=== PATIENT | male | born 1965 | race Caucasian/White ===

== ENCOUNTER 2018-01-01 18:40 | Observation (INO) | payer BC ==
[2018-01-01] MEDS ORDERED: HYDROcodone/Acetaminophen 10/325 mg Tablet PO PRN (19:06)
[2018-01-01] MEDS ORDERED: Morphine 4 MG/ML VIAL SLOW IVP PRN (19:07)
[2018-01-01] MEDS ORDERED: Ketorolac Tromethamine 30 MG/ML VIAL IVP PRN (19:08)
[2018-01-01] MEDS ORDERED: Ondansetron HCl/PF 4 MG/2 ML Vial IVP PRN (19:09)
[2018-01-01] MEDS ORDERED: Heparin 10,000 UNITS/ 10 ML VIAL ONE (19:57)
[2018-01-01 19:59] LABS: #Eosinphils 0.5 thou/uL (0.0-0.7); #Lymphocytes 2.6 thou/uL (1.20-3.40); #Monocytes 0.9 thou/uL (0.11-0.59); #Neutrophils 5.5 thou/uL (1.40-6.50); %Basophils 0.4 % (0.0-1.0); %Eosinophils 4.8 % (0.0-10.0); %Lymphocytes 27.7 % (21.0-51.0); %Monocytes 8.9 % (0.0-10.0); %Neutrophils 58.2 % (42.0-75.0); Hemoglobin 17.9 g/dL (14.0-18.0); Mean Corpuscular HGB CONC 34.6 g/dL (32.0-36.0); Mean Corpuscular Hemoglobin 32.7 pg (27.0-31.0); Mean Corpuscular Volume 94.6 fL (78.0-98.0); Mean Platelet Volume 8.2 fL (7.4-10.4); Platelet Count 203 thou/uL (130-400); RBC Distribution Width 12.9 % (11.5-14.5); Red Blood Cell (RBC) Count 5.47 mill/uL (4.70-6.10); White Blood Cell (WBC) Count 9.5 thou/uL (4.8-10.8)
[2018-01-01 20:14] LABS: Anion Gap 12 mmol/L (10-20); BUN (Urea Nitrogen) 16 mg/dL (8.9-20.6); CRP (Inflammatory) 11.54 mg/dL (= or < 0.5); Calc. Creatinine Clearance 0 mL/min (70-130); Calcium 9.2 mg/dL (7.8-10.44); Carbon Dioxide 26 mmol/L (22-29); Chloride 101 mmol/L (98-107); Estimated GFR-MDRD Greater than 90; Glucose 83 mg/dL (70-105); Potassium 3.9 mmol/L (3.5-5.1); Sodium 135 mmol/L (136-145)
[2018-01-01] MEDS: HYDROcodone/Acetaminophen 10/325 mg Tablet PO PRN (20:17)
[2018-01-01] MEDS: D5 1/2 NS w/20 mEq KCL 1,000 ML IV SCH (21:14)
[2018-01-01 23:46] VITALS: BMI 39.1
[2018-01-02 06:51] LABS: BF Color Yellow; Body Fluid Source SYNOVIAL FLUID; Clarity Cloudy/Turbid (Clear); RBC Background Count 0.009; Tube # EDTA
[2018-01-02 06:52] LABS: WBC/NonHematic-Auto 66300 /cumm
[2018-01-02 06:53] LABS: RBC Count-Automated 90000 /cumm
[2018-01-02 06:55] LABS: BF Segmented Neutrophils 93 %; Cell Count Non Hematic 5 %; Lymphocytes 2 %
[2018-01-02] MEDS: HYDROcodone/Acetaminophen 10/325 mg Tablet PO PRN ×3 (08:14→23:55)
[2018-01-02] MEDS: D5 1/2 NS w/20 mEq KCL 1,000 ML IV SCH ×3 (08:16→22:47)
--- NOTE | 2018-01-02 10:59 | PRG ---
DATE OF SERVICE: 01/02/2018 SUBJECTIVE: Overnight, Mr. Villa did fine. His pain has been well controlled with just one dose of oral narcotics. He has been afebrile. LABORATORY DATA: At this time, his new CBC showed a normal white count, platelets within normal. Hi s C-reactive protein was pretty high at over 11. His sed rate was within normal limits. The fluid t hat I removed from his knee showed a white count of 66,000, red count of 90,000 and his segs are 93%. Crystals were negative and his glucose was 7 in the fluid. ASSESSMENT AND PLAN: Based on everything, at this point, I think that the patient is not having a go ut or pseudogout attack, but is more than likely having a low grade infection from a bacteria that is not very virulent. Therefore, my recommendation is to go to the operating room for a formal incisio n and drainage arthroscopically. I have spoken with he and his about this and I do believe it i s in his best interest to over treat this rather than under treat this until we are sure that the cul tures are negative. They agree with this plan. We will plan on going to the operating room at this time for formal incision and drainage.
[2018-01-02] MEDS ORDERED: Dexamethasone 20 MG/5 ML VIAL ONE ×2 (11:11→12:44)
[2018-01-02] MEDS ORDERED: PROPOFOL 200 MG/20 ML VIAL ONE (11:11)
[2018-01-02] MEDS ORDERED: Ondansetron HCl/PF 4 MG/2 ML Vial ONE ×2 (11:11→12:44)
[2018-01-02] MEDS ORDERED: Ketorolac Tromethamine 30 MG/ML VIAL ONE ×2 (11:11→12:44)
[2018-01-02] MEDS ORDERED: Midazolam HCl 2 mg/2 ml Vial ONE ×2 (11:16→12:08)
[2018-01-02] MEDS ORDERED: Fentanyl 100 MCG/2 ML VIAL ONE ×3 (12:08→13:30)
[2018-01-02] MEDS ORDERED: Ondansetron HCl/PF 4 MG/2 ML Vial IVP PRN (14:48)
[2018-01-02] MEDS ORDERED: Promethazine HCl 25 MG/ML VIAL IM PRN (14:48)
[2018-01-02] MEDS ORDERED: Promethazine HCl 25 MG/ML VIAL SLOW IVP PRN (14:48)
--- NOTE | 2018-01-03 00:44 | CON ---
HISTORY OF PRESENT ILLNESS: A 52-year-old patient, history of hypertension, hyperlipidemia, and osteoarthritis of knees who has had 5 injections of hyaluronic acid in his left knee few months ago by Dr. Mata and did well until more recently when he developed worsening pain in the left knee while he was in a game in [place]. He was evaluated at a local emergency room and they attempted arthrocentesis, which was not successful. He came to town and the pain persisted and was evaluated by Dr. Springer and had at this time a successful arthrocentesis with 100 mL of cloudy fluid, light yellow. The fluid had 66,000 WBCs with predominance of neutrophils. The patient was admitted and had a washout, the joint appeared fairly well without obvious signs of an infective arthritis during the arthroscopy. He is currently having moderate pain at the site. No headaches, visual symptoms, sore throat, odynophagia, dysphagia, no back pain, no dyspnea or chest pain, no abdominal pain or diarrhea, voiding without difficulty. No other joint symptoms except for the right knee. There also has chronic osteoarthritis. PAST MEDICAL HISTORY: History of hypertension, hyperlipidemia, osteoarthritis in the knees. ALLERGIES: None. MEDICATIONS: Acetaminophen, Toradol, morphine, and vancomycin. PHYSICAL EXAMINATION: VITAL SIGNS: T-max 98.4, blood pressure 120/70, pulse 77, respirations 18, O2 sat 95%. There is no lymphadenopathy. HEENT: Ocular movements are conjugate. Conjunctivae normal. Nasal passages patent. Oral cavity normal. NECK: Supple. LUNGS: Symmetric. Clear breath sounds. ABDOMEN: Soft, not distended or tender. The left knee with dressing and still has a drain in place. EXTREMITIES: Pulses 2+ in dorsalis pedis. NEUROLOGIC: Nonfocal including cognitive function. LABORATORY: Synovial fluid has been discussed. Crystal analysis in the synovial fluid was negative. CBC was fairly unremarkable. The chemistry with a CRP of 11.54, sodium 135, creatinine 0.87, calcium 9.2. ASSESSMENT: 1. Hypertension. 2. Hyperlipidemia with osteoarthritis, status post hyaluronic acid injections in the past, now with synovitis of the left knee with a predominance of mature neutrophils. DISCUSSION: Differential diagnosis includes infective arthritis versus noninfectious inflammatory process. Among non-infective inflammatory processes , a chronic granulomatous synovitis following delayed reaction to hyaluronic acid injections is a possibility. An inflammatory arthropathy such as rheumatoid arthritis or systemic lupus, not likely since there are no other systemic signs or all the joints involved, seronegative spondyloarthropathies or reactive arthritis, also less likely. Crystal induced arthritis has been pretty much ruled out. I am not going to change the antimicrobial therapy at this point in time and if cultures remain negative, I would tend to discontinue antimicrobials. MTDD
--- NOTE | 2018-01-03 01:09 | OP ---
DATE OF PROCEDURE: 01/02/2018 PREOPERATIVE DIAGNOSIS: Left knee infection. POSTOPERATIVE DIAGNOSIS: Left knee infection. PROCEDURES PERFORMED: 1. Arthroscopic irrigation and debridement of left knee. 2. Removal of large bony loose body approximately 2 cm in diameter. SURGEON: Alonso Springer M.D. CONTROL VALVE TECHNICIAN: None. BLOOD LOSS: Minimal. COMPLICATIONS: None. ANESTHESIA: He had general anesthetic. DISPOSITION: He did go to the recovery room in stable condition. INDICATIONS: This is a 52-year-old male who was placed in observation yesterday evening after I went through a bunch of unhealthy appearing fluid from his left knee. At this time, based on all laboratory workup, history and physical exam, I believe it is pertinent to perform an arthroscopic irrigation and debridement of the left knee and I do believe that this patient either has had left knee infection or possible has a severe inflammatory reaction in the left knee. DESCRIPTION OF PROCEDURE: After all appropriate consent forms were explained and signed by Toney, he was taken to the operating room. At this time, he was given general anesthetic. Once the level of anesthesia was appropriate, the tourniquet was placed on the left thigh and leg was then prepped and draped in the standard surgical fashion. The limb was elevated. It was not exsanguinated and the tourniquet was taken to 300 mmHg. An inferolateral portal was established, and once trocar was placed, a significant amount of yellow turbid fluid was evacuated from the knee joint. I did not send this for any laboratory studies as we have already had a fluid sent to the lab yesterday prior to any antibiotic administration. At this time, a medial portal was made using a needle localization technique. Diagnostic arthroscopy commenced in the notch. The ACL and PCL were found to be intact. The patient was found to have a bunch of fibrinous appearing exudate in the knee and this was debrided with the shaver and any brisk bleeding was coagulated with the surface energy. There was a large impinging osteophyte on the tibia. This was taken down with the shaver to allow knee in full extension. The medial compartment showed there to be essentially no significant medial meniscus left and there was no significant amount of cartilage left in the medial compartment, both on the femur and the tibia. There were no foreign bodies. No gross area of necrotic tissue located in the medial compartment. The lateral compartment did show some better appearing cartilage on the femur and tibia, but by no means this was normal either. The lateral meniscus did not have any tearing. The gutters were swept through. Again, there was just a bunch of fibrinous appearing tissue. There were no loose bodies and no necrotic tissue and the fibrinous tissue peeled easily off the underlying [place] tissue. The underlying tissue appeared really quite pristine and normal. There were some large bony osteophytes off the medial femoral condyle as well as the lateral femoral condyle. The trochlea showed the patella to have significant cartilage loss as well as the trochlea itself. There was a large loose body in the undersurface of the superior medial pole of patella and at this time this was probed and found to be loose and a grasper was used to remove this from the knee joint. This was over 2cm in diameter. Again in the suprapatellar pouch, there was a lot of this fibrinous exudative material and again this was removed in its entirety. Went back through the knee at this time making sure there was nothing that they missed through the gutters, suprapatellar pouch in the notch, medial and lateral compartment and no other significant abnormalities were noted other than just severe arthritic change in the knee. By the end of the case, we had run through approximately 12-13 liters of saline at this point. At this time, I took a drain, I cut off the trocar and made a stab incision superolateral aspect of the knee and using a grasper, I have placed the drain into the knee joint in the suprapatellar pouch, so that this would drain the knee postoperatively. At this time, the scope was removed, knee was drained. I then closed each portal with a simple nylon stitch. I also did place a stitch in the superolateral portal, but did not sew the drain in itself. We then put a bulky sterile dressing on, charged the drain and the drain was holding suction. Tourniquet was let down once the soft tissue dressing had been applied and the toes pinked up nicely. Toney was then awakened. He was taken to the recovery room in stable condition. All counts were correct at the end of the case and Toney has already been given IV vancomycin. MARISELA
[2018-01-03] MEDS: D5 1/2 NS w/20 mEq KCL 1,000 ML IV SCH ×3 (03:39→15:28)
[2018-01-03 07:28] LABS: Vancomycin, Trough 8.8 ug/mL
[2018-01-03] MEDS: HYDROcodone/Acetaminophen 10/325 mg Tablet PO PRN ×2 (11:16→18:31)
--- NOTE | 2018-01-03 16:25 | PRG ---
DATE OF SERVICE: 01/03/2018 SUBJECTIVE: Feeling better, less pain in the knee. No respiratory symptoms or abdominal pain. OBJECTIVE: VITL SIGNS: Normal. LUNGS: Clear. CARDIOVASCULAR: S1, S2, regular rate. EXTREMITIES: Left knee still with a drain in place. Cultures are still negative. ASSESSMENT AND PLAN: Hypertension, hyperlipidemia, osteoarthritis, multiple hyaluronic acid injectio ns in the past to left knee and now with synovitis, negative cultures thus far. The most likely scen ario is an noninfective synovitis and if the cultures remain negative, I would discontinue antimicrob ial therapy. We would advise removal of the drain as soon as possible to avoid superinfection.
[2018-01-04] MEDS: HYDROcodone/Acetaminophen 10/325 mg Tablet PO PRN ×4 (00:26→20:54)
[2018-01-04] MEDS: D5 1/2 NS w/20 mEq KCL 1,000 ML IV SCH ×2 (04:36→09:34)
--- NOTE | 2018-01-04 15:22 | SPC ---
ULTRASOUND AND FLUOROSCOPIC GUIDED PICC LINE PLACEMENT: Date: 01/04/18 HISTORY: Need for long-term IV access. COMPARISON: None. TECHNIQUE: The patient was brought to the specials suite. All questions were answered. The left arm was prepped and draped in the normal sterile fashion. 1% ml of lidocaine was instilled into the superficial and d eep soft tissues. Over a wire and through a peel-away sheath, a 53 cm PICC was placed. The patient to lerated the procedure well and without complication. IMPRESSION: Technically successful placement of left basilic PICC with tip in good position. Fluoro Time: 0.2 minutes. Dose Area Product: [id number] mGy*cm^2. POS: [facility]
[2018-01-05] MEDS: D5 1/2 NS w/20 mEq KCL 1,000 ML IV SCH ×3 (00:23→21:24)
[2018-01-05] MEDS: HYDROcodone/Acetaminophen 10/325 mg Tablet PO PRN ×3 (06:37→20:37)
[2018-01-05 19:57] LABS: Vancomycin, Trough 9.4 ug/mL
--- NOTE | 2018-01-05 20:27 | PRG ---
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 The knee overall was doing fine and he is able t o get up and get around. He has now showered twice since removal of the drain, but has left his dres sing intact, clean, and dry. OBJECTIVE: The patient is afebrile. Vital signs are stable. Dressing is clean, dry, and intact. N eurovascularly intact. Culture results have grown out a staph species that is a coagulase negative S taph and this species is of such species that allow, is not doing any type of sensitivities to it. ASSESSMENT: Left knee infection. PLAN: At this time. Again, it is possible that Dr. Villa's staph species is some type of contamina nt, but in lieu of the fact that it is his knee joint and he had significant amount of pain and the n umber of white cells in his original tap, Dr. Sotelo and I believe it would be in his best interest to treat this as if it is truly a knee infection. Thankfully, this is a low variant staph species and at this time, the patient has had his PICC line placed. Dr. Sotelo was placed and antibiotic orders. We are now waiting for the [facility] [employer] to be able to discharge Dr. Villa to home. We will plan on that being able to be done on Sunday or at the very latest on Sunday.
[2018-01-06] MEDS: D5 1/2 NS w/20 mEq KCL 1,000 ML IV SCH (02:50)
[2018-01-06] MEDS: HYDROcodone/Acetaminophen 10/325 mg Tablet PO PRN ×3 (04:16→18:03)
[2018-01-06] MEDS: CeleCOXIB 100 MG CAP PO SCH ×2 (08:35→21:38)
[2018-01-07] MEDS: HYDROcodone/Acetaminophen 10/325 mg Tablet PO PRN ×4 (00:01→17:54)
--- NOTE | 2018-01-07 07:59 | PRG ---
DATE OF SERVICE: 01/06/2018 SUBJECTIVE: Mr. Villa is doing pretty well today. He was having some significant pain this morning , but he thinks it is just secondary to him increasing his activity level. He again is waiting to be discharged home once home health has been set up. OBJECTIVE: VITAL SIGNS: His vital signs stable. The patient has been afebrile. He has had a little spike in h is heart rate and his blood pressure which was presumed to be secondary to his pain level increasing recently. EXTREMITIES: Examination of his knee shows there to be no drainage whatsoever. There really is a sm all effusion at best, but most of it is just really soft tissue swelling more than anything else. Th ere is no redness. Gentle range of motion was not causing any significant discomfort. He is neurova scularly intact and the patient at this time is able do straight leg raise with an extensor lag. Again, on his final culture results he has grown out Staphylococcus caprae. ASSESSMENT: Left knee infection. PLAN: At this time, the patient has already been set up with Dr. Sotelo to go home with IV vancomycin , presumably for a period of 3-4 weeks. The patient will be able to do activity as tolerated on the limb. He may get the leg wet. I just asked him not to soak it until the sutures are removed. We wi ll plan on seeing him back not this Sunday, but the following Sunday for suture removal.
[2018-01-07] MEDS: CeleCOXIB 100 MG CAP PO SCH ×2 (08:35→20:35)
[2018-01-07 13:01] LABS: #Basophils 0.1 thou/uL (0.0-0.2); #Eosinphils 0.3 thou/uL (0.0-0.7); #Lymphocytes 2.4 thou/uL (1.20-3.40); #Neutrophils 5.6 thou/uL (1.40-6.50); %Basophils 0.7 % (0.0-1.0); %Eosinophils 3.3 % (0.0-10.0); %Lymphocytes 25.3 % (21.0-51.0); %Monocytes 10.6 % (0.0-10.0); %Neutrophils 60.1 % (42.0-75.0); Hemoglobin 16.9 g/dL (14.0-18.0); Mean Corpuscular HGB CONC 34.8 g/dL (32.0-36.0); Mean Corpuscular Volume 94.8 fL (78.0-98.0); Mean Platelet Volume 7.2 fL (7.4-10.4); Platelet Count 296 thou/uL (130-400); RBC Distribution Width 12.5 % (11.5-14.5); Red Blood Cell (RBC) Count 5.12 mill/uL (4.70-6.10); White Blood Cell (WBC) Count 9.3 thou/uL (4.8-10.8)
[2018-01-07 13:18] LABS: ALT (SGPT) 24 U/L (8-55); AST (SGOT) 15 U/L (5-34); Albumin 3.5 g/dL (3.5-5.0); Alkaline Phosphatase 89 U/L (40-150); Anion Gap 11 mmol/L (10-20); BUN (Urea Nitrogen) 15 mg/dL (8.9-20.6); Bilirubin, Total 0.9 mg/dL (0.2-1.2); Calc. Creatinine Clearance 208 mL/min (70-130); Calcium 9.4 mg/dL (7.8-10.44); Carbon Dioxide 29 mmol/L (22-29); Chloride 100 mmol/L (98-107); Estimated GFR-MDRD Greater than 90; Globulin 3.3 g/dL (2.4-3.5); Glucose 93 mg/dL (70-105); Potassium 3.8 mmol/L (3.5-5.1); Protein, Total 6.8 g/dL (6.0-8.3); Sodium 136 mmol/L (136-145)
[2018-01-07] MEDS ORDERED: ALPRAZolam 1 MG TAB PO PRN (13:18)
[2018-01-07 14:27] LABS: Vancomycin, Trough 25.4 ug/mL
[2018-01-08] MEDS: HYDROcodone/Acetaminophen 10/325 mg Tablet PO PRN (00:05)
[2018-01-08 13:29] VITALS: BP 145/92; TEMP 98
== END 2018-01-08 11:38 | disposition home or self-care (01) ==
LOC: SURG B 18:40
PROVIDERS: ADMIT Orthopaedic Surgery; ATTEND Orthopaedic Surgery
PROC: 0JHH3XZ Insertion of Tunneled Vascular Access Device into Left Lower Arm Subcutaneous Tissue and Fascia, Percutaneous Approach (ICD-10-PCS; 2018-01-04)
PROC: 0SCD4ZZ Extirpation of Matter from Left Knee Joint, Percutaneous Endoscopic Approach (ICD-10-PCS; principal; 2018-01-08)
DX: M23.42 Loose body in knee, left knee (principal); M25.762 Osteophyte, left knee; M00.9 Pyogenic arthritis, unspecified; B95.7 Other staphylococcus as the cause of diseases classified elsewhere; M17.0 Bilateral primary osteoarthritis of knee; I10 Essential (primary) hypertension; Z79.899 Other long term (current) drug therapy; E78.5 Hyperlipidemia, unspecified; Z98.890 Other specified postprocedural states
CPT/HCPCS: 36415; 36569; 80048; 80053; 80202; 82945; 85025; 85060; 85652; 86140; 87070; 87077; 87205; 89051; 89060; 96361; 96365; 96366; 96375; A4216; C1751; G0378; G8978-GP-CJ; G8979-GP-CJ; G8980-GP-CJ; J1100; J1644; J1885; J2250; J2405; J2704; J3010; J3370; J7050

== ENCOUNTER 2023-06-30 10:44 | Emergency (ER) | payer BC ==
[2023-06-30] MEDS ORDERED: GoLYTELY 4,000 ml Bottle PO SCH ×2 (11:16→11:30)
[2023-06-30 11:25] LABS: #Basophils 0.1 thou/uL (0.0-0.2); #Eosinphils 0.1 thou/uL (0.0-0.7); #Monocytes 0.6 thou/uL (0.11-0.59); #Neutrophils 4.1 thou/uL (1.40-6.50); %Basophils 0.8 % (0.0-1.0); %Eosinophils 1.9 % (0.0-10.0); %Lymphocytes 32.6 % (21.0-51.0); %Monocytes 8.5 % (0.0-10.0); %Neutrophils 56.1 % (42.0-75.0); Hematocrit 55.6 % (42.0-52.0); Hemoglobin 19.4 g/dL (14.0-18.0); Mean Corpuscular HGB CONC 34.9 g/dL (32.0-36.0); Mean Corpuscular Hemoglobin 31.5 pg (27.0-31.0); Mean Corpuscular Volume 90.4 fl (78.0-98.0); Mean Platelet Volume 10.1 fL (7.4-10.4); Platelet Count 199 10x3/uL (130-400); RBC Distribution Width 13.6 % (11.5-14.5); Red Blood Cell (RBC) Count 6.15 mill/uL (4.70-6.10); White Blood Cell (WBC) Count 7.3 10x3/uL (4.8-10.8)
[2023-06-30 11:40] LABS: Anion Gap 12 mmol/L (10-20); BUN (Urea Nitrogen) 13 mg/dL (8.4-25.7); Calc. Creatinine Clearance 0 mL/min (70-130); Carbon Dioxide 26 mmol/L (22-29); Chloride 102 mmol/L (98-107); Potassium 4.2 mmol/L (3.5-5.1); Sodium 136 mmol/L (136-145)
[2023-06-30 11:41] LABS: ALT (SGPT) 52 U/L (8-55); AST (SGOT) 37 U/L (5-34); Albumin 4.3 g/dL (3.5-5.0); Alkaline Phosphatase 82 U/L (40-110); Bilirubin, Total 0.8 mg/dL (0.2-1.2); Calcium 10.3 mg/dL (7.8-10.44); Estimated GFR 83; Globulin 2.9 g/dL (2.4-3.5); Glucose 97 mg/dL (70-105); Protein, Total 7.2 g/dL (6.0-8.3)
[2023-06-30 11:44] LABS: INR-International Normal Ratio 1.1; Prothrombin Time 13.8 sec (12.0-14.7)
[2023-06-30 11:45] LABS: PTT 31.7 sec (22.9-36.1)
[2023-06-30] MEDS ORDERED: Lidocaine 2% PF 5 ML VIAL ONE (16:30)
[2023-06-30] MEDS ORDERED: PROPOFOL 20 ML ONE (16:30)
[2023-06-30] MEDS ORDERED: PROPOFOL 40 ML ONE (16:44)
== END 2023-06-30 16:39 | disposition admitted as inpatient to this hospital (09) ==
LOC: ERS 10:44
DX: K92.2 Gastrointestinal hemorrhage, unspecified (principal); I10 Essential (primary) hypertension; Z79.899 Other long term (current) drug therapy
CPT/HCPCS: 36415; 80053; 85025; 85610; 85730; 86850; 86900; 86901; C1889; J2001; J2704